=== PATIENT | female | born 1940 | race African-American/Black ===

== ENCOUNTER 2017-05-01 07:42 | Emergency (ER) | payer SELFPAY ==
[~2017-05-01] VITALS: Ht 162.6 cm; Wt 72.4 kg
[2017-05-01 07:48] VITALS: BP 170/91
== END 2017-05-01 08:42 | disposition home or self-care (01) ==
LOC: EME 07:42
DX: M79.604 Pain in right leg (principal); I10 Essential (primary) hypertension
CPT/HCPCS: 99281; 99283